=== PATIENT | female | born 1990 | race Caucasian/White ===

== ENCOUNTER 2018-06-12 20:13 | Emergency (ER) | payer SELFPAY ==
--- NOTE | 2018-06-12 20:22 | PDOC ---
Rapid Medical Evaluation Chief Complaint: Vaginal Bleeding Time Seen by Provider: 06/12/18 20:18 Medical Evaluation: 06/12/18 20:21 The patient presents with a chief complaint of: vag spotting since this am, passed a clot at 6pm, mild midsuprapubic cramping I have performed a brief in-person evaluation of this patient Pertinent physical exam findings: vss I have ordered the following: labs, urine, u/s The patient will proceed to the ED for further evaluation. Discharge Disposition - Diagnosis Vagina bleeding - Referrals - Patient Instructions - Post Discharge Activity
[2018-06-12 20:23] VITALS: BP 128/77; PULSE 101; TEMP 98.1; BMI 24.5
[2018-06-12 21:29] LABS: BASO % 0.3 % (0-2.0); EOS % 1.8 % (0-4.5); HEMATOCRIT 40.2 % (32.4-45.2); HEMOGLOBIN 13.7 GM/dL (10.7-15.3); LYMPH % 30.5 % (8-40); MCH 28.5 pg (25.7-33.7); MEAN CELL VOLUME 83.9 fl (80-96); MONO % 3.8 % (3.8-10.2); NEUT % 63.6 % (42.8-82.8); PLATELET COUNT 264 K/MM3 (134-434); RBC 4.79 M/mm3 (3.60-5.2); WHITE BLOOD COUNT 9.1 K/mm3 (4.0-10.0)
[2018-06-12 21:30] LABS: URINE APPEARANCE CLEAR; URINE BILIRUBIN NEGATIVE (<2.0 mg/dL); URINE COLOR STRAW; URINE GLUCOSE (UA) NEGATIVE (NEGATIVE); URINE KETONE NEGATIVE (NEGATIVE); URINE LEUK ESTERASE NEGATIVE (NEGATIVE); URINE NITRITE NEGATIVE (NEGATIVE); URINE PROTEIN NEGATIVE (NEGATIVE); URINE UROBILINOGEN NEGATIVE mg/dL (0.2-1.0)
--- NOTE | 2018-06-12 21:38 | PDOC ---
History of Present Illness - General Chief Complaint: Vaginal Bleeding Stated Complaint: VAGINAL BLEEDING Time Seen by Provider: 06/12/18 20:18 History Source: Patient Exam Limitations: No Limitations - History of Present Illness Travel History: No Initial Comments: 06/12/18 21:35 HISTORY OF PRESENT ILLNESS: 27-year-old woman who is presents emergency department for vaginal spotting with one episode of vaginal clot discharge starting this morning upon awaking. Patient reports her last menstrual period was 05/08/18. Patient reports a home test which was positive which she repeated multiple times with all tests being positive. Patient reports mild lower back and lower abdominal cramping which is consistent with her usual menstrual cramps. She denies any rectal bleeding, constipation, diarrhea, vaginal itching, hematuria, dysuria, urinary frequency. No recent travel or sick contacts. PAST MEDICAL HISTORY: Denies past medical history SURGICAL HISTORY: Denies ALLERGIES: No known drug allergies REVIEW OF SYSTEMS General/Constitutional: Denies fever or chills. Denies weakness, weight change. HEENT: Denies change in vision. Denies ear pain or discharge. Denies sore throat. Cardiovascular: Denies chest pain or shortness of breath. Respiratory: Denies cough, wheezing, or hemoptysis. Gastrointestinal: Denies nausea, vomiting, diarrhea or constipation. Denies rectal bleeding. Genitourinary: Denies dysuria, frequency, or change in urination. [employer] DEVELOPER: see HPI Musculoskeletal: Denies joint or muscle swelling or pain. Denies neck or back pain. Skin and breasts: Denies rash or easy bruising. Neurologic: Denies headache, vertigo, loss of consciousness, or loss of sensation. Psychiatric: Denies depression or anxiety. Endocrine: Denies increased thirst. Denies abnormal weight change. Hematologic/Lymphatic: Denies anemia, easy bleeding, or history of blood clots. Allergic/Immunologic: Denies hives or skin allergy. Denies latex allergy. PHYSICAL EXAM General Appearance: Well-appearing, appropriately dressed. No apparent distress , no intoxication. HEENT: EOMI, PERRLA, normal ENT inspection, normal voice, TMs normal, pharynx normal. No conjunctival pallor. No photophobia, scleral icterus. Neck: Supple. Trachea midline. No tenderness, rigidity, carotid bruit, stridor , lymphadenopathy, or thyromegaly. Respiratory/Chest: Lungs CTAB. No shortness of breath, chest tenderness, respiratory distress, accessory muscle use. No crackles, rales, rhonchi, stridor , wheezing, dullness Cardiovascular: RRR. S1, S2. No JVD, murmur, bradycardia, tachycardia. Vascular Pulses: Dorsalis-Pedis (R): 2+, Dorsalis-Pedis (L): 2+ Gastrointestinal/Abdominal: Normal bowel sounds. Abdomen soft, non-distended. No tenderness or rebound tenderness. No organomegaly, pulsatile mass, guarding, hernia, hepatomegaly, splenomegaly. Lymphatic: No adenopathy, tenderness. Musculoskeletal/Extremities: Normal inspection. FROM of all extremities, normal capillary refill. Pelvis Stable. No CVA tenderness. No tenderness to extremities, pedal edema, swelling, erythema or deformity. Integumentary: Appropriate color, dry, warm. No cyanosis, erythema, jaundice or rash Neurologic: manager cosmetic II-XII intact. Fully oriented, alert. Appropriate mood/affect. Motor strength 5/5. No appreciable EOM palsy, facial droop or sensory deficit. Past History - Past Medical History Allergies/Adverse Reactions: Allergies Allergy/AdvReac Type Severity Reaction Status Date / Time No Known Allergies Allergy Verified 06/12/18 20:23 - Suicide/Smoking/Psychosocial Hx Smoking History: Never smoked Have you smoked in the past 12 months: No Information on smoking cessation initiated: No Hx Alcohol Use: No Drug/Substance Use Hx: No *Physical Exam - Vital Signs Last Vital Signs Temp Pulse Resp BP Pulse Ox 98.1 F 101 H 18 128/77 100 06/12/18 20:20 06/12/18 20:20 06/12/18 20:20 06/12/18 20:20 06/12/18 20:20 - Physical Exam Comments:: 06/12/18 21:45 Pelvic exam performed with [employer] Keturah present as computer installer. Female Pelvic Exam: positive: normal external exam, cervical os closed, normal adnexa, vaginal bleeding (yolanda blood and tissue present in vault. ). negative : CMT, adnexal tenderness Moderate Sedation - Procedure Monitoring Vital Signs: Procedure Monitoring Vital Signs Temperature 98.1 F 06/12/18 20:20 Pulse Rate 101 H 06/12/18 20:20 Respiratory Rate 18 06/12/18 20:20 Blood Pressure 128/77 06/12/18 20:20 O2 Sat by Pulse Oximetry (%) 100 06/12/18 20:20 ED Treatment Course - LABORATORY CBC & Chemistry Diagram: 06/12/18 21:02 06/12/18 21:02 - ADDITIONAL ORDERS Additional order review: Laboratory Results 06/12/18 21:09 Urine Color Straw Urine Appearance Clear Urine pH 6.0 Ur Specific [place] 1.010 Urine Protein Negative Urine Glucose (UA) Negative Urine Ketones Negative Urine Blood 3+ H Urine Nitrite Negative Urine Bilirubin Negative Urine Urobilinogen Negative Ur Leukocyte Esterase Negative 06/12/18 21:02 RBC 4.79 MCV 83.9 MCHC 34.0 RDW 14.0 MPV 9.0 Neutrophils % 63.6 Lymphocytes % 30.5 Monocytes % 3.8 Eosinophils % 1.8 Basophils % 0.3 Medical Decision Making - Medical Decision Making 06/12/18 21:37 A/P: 27-year-old female with vaginal bleeding in early Differential diagnosis include but not limited to threatened , complete , missed , ectopic , vaginal bleeding , urinary tract infection Urinalysis, urine , urine culture, CBC, BMP, beta hCG, transvaginal ultrasound Reassess 06/12/18 22:27 Laboratory testing is notable for potassium of 3.3 and a beta hCG of less than 1. Urinalysis reveals 3+ blood which is consistent with the patient having a normal menstrual period. I'll discharge the patient home with instructions to return to emergency department for any concerns. I discussed the physical exam findings, ancillary test results and final diagnoses with the patient. I answered all of the patient's questions. The patient was satisfied with the care received and felt comfortable with the discharge plan and treatment plan. The patient will call their primary care physician within 24 hours to arrange follow-up and will return to the Emergency Department with any new, persistent or worsening symptoms. 06/12/18 23:48 Transvaginal ultrasound as read by Dr. Bruner: Several small subendometrial calcifications are seen within the uterine body which may be postinflammatory/ postinfectious in nature. Endometrial thickness appears unremarkable measuring 0.6 cm. The ovaries appear unremarkable. No Doppler evidence of ovarian torsion. *DC/Admit/Observation/Transfer Diagnosis at time of Disposition: Menstruation - Discharge Dispostion Disposition: HOME Condition at time of disposition: Stable Decision to Admit order: No - Referrals - Patient Instructions Additional Instructions: Return to ER for any concerns. Thank you for choosing us to provide your emergent healthcare needs. - Post Discharge Activity
[2018-06-12 21:41] LABS: EPI CELLS RARE /HPF (FEW); URINE MUCUS RARE
[2018-06-12 21:42] LABS: ALBUMIN 4.2 g/dl (3.4-5.0); ALK PHOS 73 U/L (45-117); ANION GAP 6 MMOL/L (8-16); BILIRUBIN,TOTAL 0.9 mg/dL (0.2-1); BLOOD UREA NITROGEN 9 mg/dL (7-18); CALCIUM 9.1 mg/dL (8.5-10.1); CHLORIDE 106 mmol/L (98-107); CO2 26 mmol/L (21-32); CREATININE 0.8 mg/dL (0.55-1.3); GLUCOSE,RANDOM 105 mg/dL (74-106); POTASSIUM 3.3 mmol/L (3.5-5.1); SGOT/AST 22 U/L (15-37); SGPT/ALT 26 U/L (13-61); SODIUM 139 mmol/L (136-145); TOT PROT 8.4 g/dl (6.4-8.2)
== END 2018-06-12 22:57 | disposition home or self-care (01) ==
LOC: JER 20:13
DX: N92.0 Excessive and frequent menstruation with regular cycle (principal)
CPT/HCPCS: 36415; 76830-TC; 80053; 81003; 81015; 84702; 85025; 86850; 86900; 86901; 87086; 99283-25